=== PATIENT | female | born 1980 | race Caucasian/White ===

== ENCOUNTER 2024-12-12 00:45 | Inpatient (IN) | payer OTHER ==
[2024-12-12] MEDS ORDERED: AMPICILLIN SODIUM 2 GM VIAL ONE (01:26)
[2024-12-12] MEDS ORDERED: SODIUM CHLORIDE 100 ML IVPB ONE (01:26)
[2024-12-12] MEDS: LACTATED RINGERS SOLUTION 1,000 ML IV SCH (01:30)
[2024-12-12] MEDS: AMPICILLIN - 2 GM in SODIUM CHLORIDE 100 ML IVPB ONE (01:30)
[2024-12-12 01:42] VITALS: BMI 32.4
[2024-12-12 01:55] LABS: ABSOLUTE IMMATURE GRANULOCYTES 0.02 x10^3/uL (0.0-0.031); BASOPHILS # 0.02 x10^3/uL (0.01-0.08); EOSINOPHIL % 0.5 % (0.7-5.8); EOSINOPHILS # 0.03 x10^3/uL (0.04-0.36); HEMATOCRIT 35.5 % (34.1-44.9); HEMOGLOBIN 11.3 g/dL (11.2-15.7); MCHC 31.8 g/dl (32.2-35.5); MEAN CELL VOLUME 88.8 fl (79.4-94.8); MONOCYTE # 0.32 x10^3/uL (0.24-0.86); MONOCYTE % 4.9 % (4.7-12.5); PLATELET COUNT 173 x10^3/uL (182-369); RDW 16.7 % (12.2-17.1)
[2024-12-12 02:06] LABS: INR 0.9 (0.83-1.09); PROTHROMBIN TIME (PATIENT) 9.9 SEC (9.7-13.0)
[2024-12-12 02:09] LABS: ACTIVATED PTT 30.3 SECONDS (25.2-36.5)
[2024-12-12 02:17] LABS: BLOOD UREA NITROGEN 14.1 mg/dL (7-18); CALCIUM 8.9 mg/dL (8.5-10.1)
[2024-12-12 02:21] LABS: CREATININE 0.5 mg/dL (0.55-1.3)
[2024-12-12 02:58] LABS: POTASSIUM 3.9 mmol/L (3.5-5.1)
[2024-12-12 03:15] LABS: HIV INTERPRETATION NEGATIVE (NEGATIVE)
[2024-12-12] MEDS ORDERED: BUTORPHANOL TARTRATE 2 MG/ML VIAL IVPB ONE (03:43)
[2024-12-12] MEDS ORDERED: OXYTOCIN 30 UNITS in 0.9% NS 30 UNIT/500 ML INFUS.BAG IVPB ONE (04:06)
[2024-12-12] MEDS: OXYTOCIN 30 UNITS in 0.9% NS 30 UNIT/500 ML INFUS.BAG IVPB SCH (04:10)
[2024-12-12] MEDS ORDERED: AMPICILLIN SODIUM 1 GM VIAL ONE ×2 (05:26→09:32)
[2024-12-12] MEDS: AMPICILLIN - 1 GM in SODIUM CHLORIDE 100 ML IVPB SCH (05:30)
[2024-12-12] MEDS: ELECTROLYTE-148 SOLN 1,000 ML IV SCH (05:30)
[2024-12-12] MEDS ORDERED: BUTORPHANOL TARTRATE 1 MG/ML VIAL ONE (05:54)
[2024-12-12] MEDS ORDERED: PROMETHAZINE HCL 25 MG/1 ML VIAL ONE (05:54)
[2024-12-12] MEDS: BUTORPHANOL TARTRATE 1 MG/ML VIAL IVPB ONE (06:00)
[2024-12-12] MEDS: PROMETHAZINE HCL 25 MG/1 ML VIAL IVPB ONE (06:00)
[2024-12-12] MEDS ORDERED: FENTANYL/BUPIVACAINE/NS/PF - PCEA - 50 ML DISP.SYRIN EP ONE (08:23)
[2024-12-12] MEDS: FENTANYL/BUPIVACAINE/NS/PF - PCEA - 50 ML DISP.SYRIN EP SCH ×2 (08:45)
[2024-12-12] MEDS ORDERED: OXYTOCIN 20 UNITS in 0.9% NS 20 UNIT/1,000 ML INFUS.BAG IV ONE (09:12)
[2024-12-12] MEDS ORDERED: NALOXONE HCL 0.4 MG/ML VIAL IVPUSH PRN (10:11)
[2024-12-12] MEDS: OXYTOCIN 20 UNITS in 0.9% NS 20 UNIT/1,000 ML INFUS.BAG IV SCH (10:50)
[2024-12-12] MEDS: METHYLERGONOVINE MALEATE 0.2 MG/1 ML AMP IM PRN (11:30)
[2024-12-12] MEDS ORDERED: ACETAMINOPHEN 325 MG TABLET (FP) PO PRN (11:32)
[2024-12-12] MEDS ORDERED: BENZOCAINE 28 GM HEMORRHOIDAL OINTMENT TP PRN (11:32)
[2024-12-12] MEDS ORDERED: BENZOCAINE 20% 57 GM BOTTLE TP PRN (11:32)
[2024-12-12] MEDS ORDERED: oxyCODONE HCL 5 MG TABLET PO PRN (11:32)
[2024-12-12] MEDS ORDERED: BISACODYL 10 MG SUPP.RECT RC PRN (11:32)
[2024-12-12 12:02] LABS: CORD BASE EXCESS -5.1 mmol/L (0-2); CORD HCO3 22.5 mmHg (20-29); CORD PCO2 50.7 mmHg (30-78); CORD pH 7.265 (7.14-7.44)
[2024-12-12 12:02] LABS: CORD BASE EXCESS -0.9 mmol/L (0-2); CORD HCO3 25.1 mmHg (20-29); CORD PCO2 46.2 mmHg (30-78); CORD pH 7.353 (7.14-7.44)
[2024-12-12] MEDS: FERROUS SO4 325 MG TABLET (FP) PO SCH (16:24)
[2024-12-13] MEDS: IBUPROFEN 600 MG TABLET (FP) PO PRN (05:07)
[2024-12-13 07:32] LABS: ABSOLUTE IMMATURE GRANULOCYTES 0.04 x10^3/uL (0.0-0.031); BASOPHILS # 0.01 x10^3/uL (0.01-0.08); EOSINOPHIL % 0.1 % (0.7-5.8); EOSINOPHILS # 0.01 x10^3/uL (0.04-0.36); HEMATOCRIT 31.7 % (34.1-44.9); HEMOGLOBIN 9.8 g/dL (11.2-15.7); MCHC 30.9 g/dl (32.2-35.5); MEAN CELL VOLUME 90.3 fl (79.4-94.8); MEAN PLT VOLUME 10.4 fl (9.4-12.3); MONOCYTE # 0.48 x10^3/uL (0.24-0.86); MONOCYTE % 5.5 % (4.7-12.5); PLATELET COUNT 152 x10^3/uL (182-369); RDW 17.2 % (12.2-17.1)
[2024-12-13] MEDS: PRENATAL VITAMINS W/ FOLIC ACID TABLET (FP) PO SCH (09:07)
[2024-12-13 13:41] LABS: POC NITRAZINE POS
[2024-12-13] MEDS ORDERED: SENNOSIDES/DOCUSATE COMBO (SENNA PLUS) TABLET (UD) PO PRN (22:00)
[2024-12-14 09:07] VITALS: BP 114/60; PULSE 73; RESP 16; TEMP 98
[2024-12-14] MEDS: WITCH HAZEL 50% (TUCKS) 40 PAD/JAR PAD TP PRN (12:07)
== END 2024-12-14 13:05 | disposition home or self-care (01) | DRG 560 ==
LOC: JLDR 00:45 → J3W 13:50
PROVIDERS: ADMIT Obstetrics & Gynecology; ATTEND Obstetrics & Gynecology
PROC: 0KQM0ZZ Repair Perineum Muscle, Open Approach (ICD-10-PCS; principal; 2024-12-12)
PROC: 10E0XZZ Delivery of Products of Conception, External Approach (ICD-10-PCS; 2024-12-12)
DX: O42.92 Full-term premature rupture of membranes, unspecified as to length of time between rupture and onset of labor (principal); O99.824 Streptococcus B carrier state complicating childbirth; O70.1 Second degree perineal laceration during delivery; Z3A.38 38 weeks gestation of pregnancy; Z37.0 Single live birth
CPT/HCPCS: 36415; 36600; 59409; 80048; 82803; 83986-QW; 85025; 85610; 85730; 86780; 86850; 86900; 86901; 87389; 88307-TC